=== PATIENT | female | born 1955 | race Hispanic/Latino ===

== ENCOUNTER → 2018-09-15 | Outpatient (CLI) | payer BC ==
[~2018-09-15] MED LIST: CELEBREX100 MG PO; CRESTOR20 MG PO; LOVAZA1 GM PO; NORCO 10MG-325MG1 EA PO; Tylenol Arthritis PO
== END ==
LOC: MAMMO 10:32
PROVIDERS: ATTEND Family Medicine
DX: Z12.31 Encounter for screening mammogram for malignant neoplasm of breast (principal)
CPT/HCPCS: 77067

== ENCOUNTER → 2018-10-18 | Outpatient (CLI) | payer BC ==
--- NOTE | 2018-10-18 16:04 | Diagnostic Imaging Report ---
PROCEDURE: BONE DXA DUAL ENERGY COMPARISON:None. INDICATIONS:OSTEOPORSIS SCREENING FINDINGS:Evaluation of the left hip and lumbar spine was performed utilizing DEXA Hologic bone densitometer. The study is technically adequate. The patient does not have any known previous non-traumatic fractures or other risk factors. Left hip total bone mineral density: 0.778 gm/cm2, T-score is -1.4, Z-score is -0.4. Lumbar spine total bone mineral density: 0.788 gm/cm2, T-score is -2.4, Z-score is -0.8. Impression: 1. Decreased bone mineral density of the left hip classified as osteopenia, fracture risk is increased. 2. Decreased bone mineral density of the lumbar spine classified as osteopenia, fracture risk is increased. 3. Femur bone mineral density changed since the prior study is -1.5%. 4. Spine bone mineral density changed since the prior study is 1.1%. The patient's fracture risk is compared to an age-matched control. Medical evaluation for secondary causes of low bone mineral density may be appropriate. Correlate clinically for the necessity and timing of the next bone mineral density study. National [employer] recommendations: Initial therapy to reduce fracture risk in postmenopausal women with -BMD t-scores below -2.0 by central DXA with no risk factors -BMD t-scores below -1.5 by central CXA with one or more risk factors (first deg relative with hip fracture, prior personalfracture, low body weight, smoking) -A prior vertebral or hip fracture AACE n(Clinical Endocrinology) recommends treating the following: Postmenopausal women who have osteoporosis as diagnosed by fragility fractures or t-score -2.5 or below. Postmenopausal women who have risk factors (including hx of hip fracture, low body weight, smoking, risk of falling, high bone turnover, advancing age) and borderline low BMD T-scores of -1.5 or below Adequate intake of calcium (at least 1200mg/day) and vitamin D (400-800IU/day). Regular weight bearing and muscle-strengthening exercises Avoid smoking and excessive alcohol Star Baxter D.O. Dictated by: Star Baxter D.O. on 10/18/2018 at 16:05 Electronically approved by: Star Baxter D.O. on 10/18/2018 at 16:05
--- NOTE | 2018-10-19 08:45 | Diagnostic Imaging Report ---
#[id number] - USBRECOMRT ULTRASOUND OF THE RIGHT BREAST : 10/18/2018 Comparison is made to exams dated: 10/18/2018 mammogram, 09/15/2018 mammogram, 05/03/2016 ultrasound and 03/23/2016 mammogram - [facility]. Color flow and real-time ultrasound were performed on the entire right breast with scanning in all four quadrants, retroareolar region and the right axilla. -At 12 o'clock 1 cm from the nipple is a 4 x 5 x 6 mm cyst. -At 1 o'clock 1 cm from the nipple is a 1.2 x 0.6 x 1.1 cm cyst. -At 7 o'clock 1 cm from the nipple is a 1.2 x 0.7 x 1.2 cm cyst. -Several smaller cysts are scattered in the right breast. IMPRESSION: BENIGN There is no sonographic evidence of malignancy. A 1 year screening mammogram is recommended. Star Baxter Jr., D.O. cw/:10/18/2018 14:33:39 [place] Burnisher: GEORGE MOSES RDMS, [facility] letter sent: Normal Exam Ultrasound BI-RADS: 2 Benign
--- NOTE | 2018-10-19 08:45 | Diagnostic Imaging Report ---
#[id number] - MGDXRT #UNILATERAL RIGHT DIGITAL DIAGNOSTIC MAMMOGRAM WITH SPOT COMPRESSION: 10/18/2018 Comparison is made to exams dated: 09/15/2018 mammogram and 03/23/2016 mammogram - [facility]. Current study contains 3 films. The tissue of the right breast is heterogeneously dense. This may lower the sensitivity of mammography. The mass at the 11 o'clock position persists with focal spot compression-this may represent a cyst. There is vascular calcification and scattered benign calcification present. IMPRESSION: INCOMPLETE: NEEDS ADDITIONAL IMAGING EVALUATION Ultrasound recommended to evaluate the mass in the right breast. Star Baxter Jr., D.O. cw/:10/18/2018 18:38:48 [place] [facility] Supervisor: Marbella GALINDO)(M), [facility] letter sent: Additional Imaging Needed Mammogram BI-RADS: 0 Indeterminate
== END ==
LOC: DX 08:59
PROVIDERS: ATTEND Family Medicine
DX: Z13.820 Encounter for screening for osteoporosis (principal); R92.1 Mammographic calcification found on diagnostic imaging of breast
CPT/HCPCS: 77080

== ENCOUNTER → 2020-01-10 | Outpatient (CLI) | payer BC ==
[~2020-01-10] MED LIST changes: +GADOBENATE DIMEGLUMINE 1 ML IV ONE
[2020-01-10 12:28] LABS: BLOOD UREA NITROGEN 10 mg/dL (7-26); BUN/CREATININE RATIO 15 (6-25); CREATININE, SERUM 0.67 mg/dL (0.57-1.11); EST GLOMERULAR FILTRATION RATE > 60 ML/MIN (60-)
--- NOTE | 2020-01-10 15:07 | Diagnostic Imaging Report ---
History:Chronic pansinusitis, tightness media, unspecified mass excised from ethmoid sinus x10 years ago. Comparison studies: None. Technique: Axial DWI, precontrast sagittal and axial T1 FLAIR, axial coronal T2 and postcontrast axial, coronal and sagittal T1 FS through the maxillofacial region. Intravenous contrast: 15 cc MultiHance Discussion: Image quality: Magnetic susceptibility artifact from metallic dental hardware somewhat limits evaluation of the left maxillary mandible. Soft tissues: No abnormalities. Bones: No signal abnormalities in the bone marrow. Orbits: Evaluation of the left orbit is somewhat limited on the postcontrast T1 sequence due to incomplete fat suppression from magnetic susceptibility artifact. Otherwise, no mass or other gross abnormalities. Nasal sinuses and nasal cavity: Postsurgical changes of prior right medial antrostomy, total ethmoidectomy, partial right turbinectomy, likely uncinectomies and possibly right frontal sinusotomy. A 4 mm polypoid focus of enhancement along the lateral wall of the ethmoidectomy cavity adjacent to the right lamina papyracea is nonspecific (series #8, image 21). No other A couple small retention cysts are present along the bilateral maxillary sinuses and there is minimal T2 hyperintense mucosal thickening within the left anterior ethmoids. No T2 hyperintense signal changes in the remaining sinuses. Pneumatized left middle nasal turbinate (i.e. tyrone bullosa) a normal anatomical variant. Middle ear and mastoids: No abnormal T2 hyperintense signal changes bilaterally. IMPRESSION: 1. Changes of prior right sinonasal endoscopic sinus surgery. 2. Small focal enhancement along the lateral wall of the right ethmoidectomy bed is nonspecific. No other sinonasal mass. 3. Small bilateral maxillary sinus retention cysts with minimal left anterior ethmoid mucosal thickening. 4. No middle ear or mastoid effusion. Signed by: Dr. Jamie Garcia M.D. on 01/10/2020 3:03 PM
== END ==
LOC: MRI 11:33
PROVIDERS: ATTEND Family Medicine
DX: J32.4 Chronic pansinusitis (principal); H67.1 Otitis media in diseases classified elsewhere, right ear
CPT/HCPCS: 36415; 70543; 82565; 84520

== ENCOUNTER → 2020-03-24 | Outpatient (CLI) | payer BC ==
[~2020-03-24] MED LIST changes: -GADOBENATE DIMEGLUMINE 1 ML IV ONE
== END ==
LOC: MAMMO 10:30
PROVIDERS: ATTEND Family Medicine
DX: Z12.31 Encounter for screening mammogram for malignant neoplasm of breast (principal)
CPT/HCPCS: 77067

== ENCOUNTER → 2020-06-10 | Outpatient (CLI) | payer OTHER ==
[~2020-06-10] MED LIST changes: +COVID-19 VACC, MRNA(MODERNA)/PF 100 MCG/0.5 ML VIAL IM ONE
== END | disposition home or self-care (01) ==
LOC: VACCPMC 16:00
DX: Z23 Encounter for immunization (principal); Z20.822 Contact with and (suspected) exposure to COVID-19

== ENCOUNTER → 2020-07-08 | Outpatient (CLI) | payer OTHER | LOC: VACCPMC 10:26 | DX: Z23 Encounter for immunization (principal); Z20.822 Contact with and (suspected) exposure to COVID-19 | CPT/HCPCS: 0012A; 91301 ==

== ENCOUNTER → 2022-01-22 | Outpatient (CLI) | payer OTHER ==
[~2022-01-22] MED LIST changes: -COVID-19 VACC, MRNA(MODERNA)/PF 100 MCG/0.5 ML VIAL IM ONE
== END ==
LOC: MAMMO 12:47
PROVIDERS: ATTEND Nurse Practitioner Family
DX: Z12.31 Encounter for screening mammogram for malignant neoplasm of breast (principal)
CPT/HCPCS: 77067; 77080

== ENCOUNTER → 2023-10-04 | Outpatient (REF) | payer OTHER | LOC: MAMMO 10:39 | PROVIDERS: ATTEND Internal Medicine | DX: Z12.31 Encounter for screening mammogram for malignant neoplasm of breast (principal); M81.0 Age-related osteoporosis without current pathological fracture; Z78.0 Asymptomatic menopausal state | CPT/HCPCS: 71046; 77067; 77080 ==